=== PATIENT | female | born 2005 | race Caucasian/White ===

== ENCOUNTER 2023-09-02 23:06 | Emergency (ER) | payer SELFPAY ==
[~2023-09-02] VITALS: Ht 167.6 cm; Wt 53.0 kg
[2023-09-02 23:40] VITALS: O2SAT 100
[2023-09-03 02:35] VITALS: BP 98/65; PULSE 70; RESP 16; TEMP 97.8
== END 2023-09-03 02:54 | disposition home or self-care (01) ==
LOC: ER 23:06
DX: Z00.00 Encounter for general adult medical examination without abnormal findings (principal); Z98.890 Other specified postprocedural states
CPT/HCPCS: 71045; 74018; 81025; 99284